=== PATIENT | male | born 1945 | race African-American/Black ===

== ENCOUNTER 2017-11-07 09:49 | Outpatient (RCR) | payer MEDICARE, OTHER ==
[2017-10-22 10:36] LABS: BUN/CREATININE RATIO 10; CREATININE SERUM 1.01 MG/DL (0.60-1.30); GFR ESTIMATED > 60
== END 2017-11-09 | disposition home or self-care (01) ==
LOC: ONC 09:49
PROVIDERS: ATTEND Radiology Radiation Oncology
DX: Z51.0 Encounter for antineoplastic radiation therapy (principal); C61 Malignant neoplasm of prostate
CPT/HCPCS: 36415; 77300; 77301; 77334; 77338; 77385; 82565; 84520; 99204

== ENCOUNTER 2017-12-26 09:21 | Outpatient (RCR) | payer MEDICARE, OTHER | END 2018-02-08 | disposition home or self-care (01) | LOC: ONC 09:21 | PROVIDERS: ATTEND Radiology Radiation Oncology | DX: Z51.0 Encounter for antineoplastic radiation therapy (principal); C61 Malignant neoplasm of prostate | CPT/HCPCS: 77300; 77336; 77338; 77385 ==

== ENCOUNTER 2018-03-06 11:58 | Outpatient (RCR) | payer MEDICARE, OTHER | END 2018-06-04 | disposition home or self-care (01) | LOC: ONC 11:58 | PROVIDERS: ATTEND Radiology Radiation Oncology | DX: C61 Malignant neoplasm of prostate (principal) | CPT/HCPCS: 36415; 84153 ==

== ENCOUNTER → 2018-12-21 | Outpatient (CLI) | payer MEDICARE, OTHER | LOC: EDSTATUS 09-18 09:08 → ONC 09:09 | PROVIDERS: ATTEND Radiology Radiation Oncology | DX: C61 Malignant neoplasm of prostate (principal) | CPT/HCPCS: 36415; 84153 ==

== ENCOUNTER 2020-08-25 11:08 | Emergency (ER) | payer MEDICARE, OTHER ==
[2020-08-25] MEDS ORDERED: hydrALAZINE (APESOLINE) 20 MG/ML VIAL IV STA (11:24)
--- NOTE | 2020-08-25 11:24 | ED General ---
General Chief Complaint: Cardiac/General Problems Stated Complaint: CHEST PAIN Source of Information: Patient, EMS History of Present Illness Date Seen by Provider: Aug 25, 2020 Time Seen by Provider: 11:08 Initial Comments 75-year-old male presenting by EMS from the urgent care clinic with complaints of high blood pressure and leg cramping. He states this has been going on for over a month. He denies missing any doses of medication being on the medicine. He follows with Dr. Freeman. He states since his in April she has been eating more fast food and prepared meals that have a lot of preservatives and sodium in them. He has had some intermittent chest pains that feel more like his reflux. He denies any headache, vision change, blurry vision, nausea, vomiting, pain with urination. Timing/Duration: Other (Over a month of intermittent symptoms) Associated Systoms: No Cough, No Diaphoresis, No Fever/Chills, No Headaches, No Loss of Appetite, No Malaise, No Nausea/Vomiting, No Rash, No Seizure, No Shortness of Air, No Syncope, No Weakness Allergies and Home Medications Allergies Coded Allergies: No Known Drug Allergies (Unverified , 08/25/20) Home Medications Losartan Potassium 100 Mg Tablet, 100 MG PO DAILY Prescribed by: GIL GARCIA on 08/25/20 1207 Patient Home Medication List Home Medication List Reviewed: Yes Review of Systems Review of Systems Constitutional: No chills, No dizziness, No fever EENTM: no symptoms reported Respiratory: no symptoms reported Cardiovascular: chest pain (Intermittent pain that feels like his heartburn) Gastrointestinal: see HPI Genitourinary: no symptoms reported Musculoskeletal: see HPI, muscle cramps (Left leg more than right) Skin: no symptoms reported Psychiatric/Neurological: No Symptoms Reported Past Frgnquu-Psonwy-Mmrjrl Hx Past Medical History Respiratory: No Cardiac: Yes High Cholesterol, Hypertension Physical Exam Vital Signs Vital Signs - First Documented 08/25/20 11:08 Temp 36.7 Pulse 72 Resp 23 B/P (MAP) 193/93 (126) Pulse Ox 98 O2 Delivery Room Air Capillary Refill : Height, Weight, BMI Height: '" Weight: lbs. oz. kg; BMI Method: General Appearance: No Apparent Distress, WD/WN HEENT: PERRL/EOMI Neck: Full Range of Motion, Normal Inspection, Non Tender, Supple Respiratory: Chest Non Tender, Lungs Clear, Normal Breath Sounds Cardiovascular: Regular Rate, Rhythm, Normal Peripheral Pulses Gastrointestinal: Normal Bowel Sounds, No Pulsatile Mass, Non Tender, Soft Rectal: Deferred Extremity: Normal Capillary Refill, No Pedal Edema Neurologic/Psychiatric: Alert, Oriented x3, field nurse II-XII Norm as Tested Skin: Normal Color, Warm/Dry Progress/Results/Core Measures Suspected Sepsis SIRS Temperature: Pulse: Respiratory Rate: Laboratory Tests 08/25/20 11:10: White Blood Count 5.1 Blood Pressure / Mean: Laboratory Tests 08/25/20 11:10: Creatinine 1.09, INR Comment 0.9, Platelet Count 235, Total Bilirubin 0.4 Results/Orders Lab Results Laboratory Tests Test 08/25/20 11:10 08/25/20 11:20 Range/Units White Blood Count 5.1 4.3-11.0 10^3/uL Red Blood Count 4.61 4.35-5.85 10^6/uL Hemoglobin 14.6 13.3-17.7 G/DL Hematocrit 43 40-54 % Mean Corpuscular Volume 93 80-99 FL Mean Corpuscular Hemoglobin 32 25-34 PG Mean Corpuscular Hemoglobin Concent 34 32-36 G/DL Red Cell Distribution Width 12.8 10.0-14.5 % Platelet Count 235 130-400 10^3/uL Mean Platelet Volume 9.8 7.4-10.4 FL Immature Granulocyte % (Auto) 1 % Neutrophils (%) (Auto) 42 42-75 % Lymphocytes (%) (Auto) 41 12-44 % Monocytes (%) (Auto) 15 H 0-12 % Eosinophils (%) (Auto) 1 0-10 % Basophils (%) (Auto) 0 0-10 % Neutrophils # (Auto) 2.1 1.8-7.8 X 10^3 Lymphocytes # (Auto) 2.1 1.0-4.0 X 10^3 Monocytes # (Auto) 0.8 0.0-1.0 X 10^3 Eosinophils # (Auto) 0.1 0.0-0.3 10^3/uL Basophils # (Auto) 0.0 0.0-0.1 10^3/uL Immature Granulocyte # (Auto) 0.0 0.0-0.1 10^3/uL Prothrombin Time 12.8 12.2-14.7 SEC INR Comment 0.9 0.8-1.4 Activated Partial Thromboplast Time 29 24-35 SEC Sodium Level 137 135-145 MMOL/L Potassium Level 4.0 3.6-5.0 MMOL/L Chloride Level 104 98-107 MMOL/L Carbon Dioxide Level 24 21-32 MMOL/L Anion Gap 9 5-14 MMOL/L Blood Urea Nitrogen 13 7-18 MG/DL Creatinine 1.09 0.60-1.30 MG/DL Estimat Glomerular Filtration Rate > 60 BUN/Creatinine Ratio 12 Glucose Level 112 H 70-105 MG/DL Calcium Level 9.4 8.5-10.1 MG/DL Corrected Calcium 9.2 8.5-10.1 MG/DL Magnesium Level 2.0 1.6-2.4 MG/DL Total Bilirubin 0.4 0.1-1.0 MG/DL Aspartate Amino Transf (AST/SGOT) 20 5-34 U/L Alanine Aminotransferase (ALT/SGPT) 26 0-55 U/L Alkaline Phosphatase 64 40-136 U/L Troponin I < 0.30 <0.30 NG/ML Pro-B-Type Natriuretic Peptide 24.5 <75.0 PG/ML Total Protein 7.4 6.4-8.2 GM/DL Albumin 4.3 3.2-4.5 GM/DL Urine Color YELLOW Urine Clarity CLEAR Urine pH 7.0 5-9 Urine Specific [place] 1.015 L 1.016-1.022 Urine Protein NEGATIVE NEGATIVE Urine Glucose (UA) NEGATIVE NEGATIVE Urine Ketones NEGATIVE NEGATIVE Urine Nitrite NEGATIVE NEGATIVE Urine Bilirubin NEGATIVE NEGATIVE Urine Urobilinogen 0.2 < = 1.0 MG/DL Urine Leukocyte Esterase NEGATIVE NEGATIVE Urine RBC (Auto) NEGATIVE NEGATIVE Urine RBC NONE /HPF Urine WBC 0-2 /HPF Urine Squamous Epithelial Cells RARE /HPF Urine Crystals NONE /LPF Urine Bacteria NEGATIVE /HPF Urine Casts NONE /LPF Urine Mucus NEGATIVE /LPF Urine Culture Indicated NO My Orders Orders - GIL GARCIA MD Cbc With Automated Diff (08/25/20 11:19) Magnesium (08/25/20 11:19) Chest 1 View Ap/Pa Only (08/25/20 11:19) Ekg Tracing (08/25/20 11:19) Comprehensive Metabolic Panel (08/25/20 11:19) Protime With Inr (08/25/20 11:19) Partial Thromboplastin Time (08/25/20 11:19) O2 (08/25/20 11:19) Monitor-Rhythm Ecg Trace Only (08/25/20 11:19) Ed Iv/Invasive Line Start (08/25/20 11:19) Troponin I Fs (08/25/20 11:19) Probnp Fs (08/25/20 11:19) Ua Culture If Indicated (08/25/20 11:19) Hydralazine Injection (Apresoline Inject (08/25/20 11:24) Vital Signs/I&O 08/25/20 08/25/20 11:08 12:20 Temp 36.7 Pulse 72 71 Resp 23 18 B/P (MAP) 193/93 (126) 159/97 Pulse Ox 98 96 O2 Delivery Room Air Room Air Capillary Refill : Progress Note #1: Progress Note Obtain electrocardiogram as well as labs and chest x-ray. Given aspirin by EMS for his complaint of epigastric indigestion and heartburn type symptoms. Electrocardiogram does not show any acute ST elevation or ischemic change. Ordered hydralazine to help with his elevated blood pressure Progress Note #2: Progress Note Patient has no acute significant normality on his labs. He had negative cardiac enzymes considering he has had symptoms off and on for over a month. His blood pressure was responding to the medication. His chest x-ray did not show any acute significant normality. Counseled that his electrolytes did not demonstrate any acute abnormality to account for his muscle cramps and spasms. This may be related back to his medication and not eating a balanced diet. Advised to try and do better with his diet as well as double up on his losartan until he can check back with the clinic in the next week or 2. ECG Initial ECG Impression Date: Aug 25, 2020 Initial ECG Impression Time: 11:08 Initial ECG Rate: 71 Initial ECG Rhythm: Normal Sinus Initial ECG Comparisson: No Previous ECG Available Comment Normal sinus rhythm with heart rate 71 bpm. ID interval 121 ms. He has premature atrial complexes. There is a right bundle branch block present. No acute ST elevation. QT interval 403 ms with a QTc interval 471 ms. There is no prior tracing available for comparison. Diagnostic Imaging Diagonstic Imaging: Xray Plain Films/CT/US/NM/MRI: chest Comments [facility] [place], [place] NAME: DEEPAK ERAZO [facility] REC#: [id number] PT STATUS: REG ER : 1945 PHYSICIAN: GIL GARCIA MD ADMIT DATE: 08/25/20/ER FS Draft Date of Exam:08/25/20 CHEST 1 VIEW AP/PA ONLY Indication: Hypertension, chest pain Portable chest 11:15 AM Heart size and pulmonary vascularity are normal. Lungs are clear. There are no effusions or pneumothoraces. IMPRESSION: Negative chest. Dictated on workstation # [id number] Dict: 08/25/20 1132 Trans: 08/25/20 1133 [facility] [id number] Interpreted by: HOMERO BLUE MD Electronically signed by: Reviewed: Reviewed by Me Departure Impression Primary Impression: Hypertension Qualified Codes: I10 - Essential (primary) hypertension Additional Impression: Leg cramping Disposition: 01 HOME, SELF-CARE Condition: Improved Departure-Patient Inst. Decision time for Depature: 12:07 Referrals: CLINTON FREEMAN MD Patient Instructions: High Blood Pressure ED, Muscle Spasm ED, DASH Diet, Low Salt Diet Add. Discharge Instructions: Double your Losartan blood pressure medicine to take 100 mg instead of just 50 mg a day. Follow up with clinic about your blood pressure and leg cramps. Try to avoid pre-packaged foods as they have a lot of salt and preservatives that can raise your blood pressure. All discharge instructions reviewed with patient and/or family. Voiced understanding. Scripts Losartan Potassium (Losartan Potassium) 100 Mg Tablet 100 MG PO DAILY for Blood Pressure for 30 Days, #30 TAB 0 Refills Prov: GIL GARCIA MD 08/25/20 GIL GARCIA MD Aug 25, 2020 11:24
--- NOTE | 2020-08-25 11:34 | Diagnostic Imaging Report ---
Indication: Hypertension, chest pain Portable chest 11:15 AM Heart size and pulmonary vascularity are normal. Lungs are clear. There are no effusions or pneumothoraces. IMPRESSION: Negative chest. Dictated by: Dictated on workstation # [id number]
[2020-08-25 11:55] LABS: BASOPHILS % (AUTO) 0 % (0-10); EOSINOPHILS # (AUTO) 0.1 10^3/uL (0.0-0.3); EOSINOPHILS % (AUTO) 1 % (0-10); HEMATOCRIT 43 % (40-54); HEMOGLOBIN 14.6 G/DL (13.3-17.7); LYMPHOCYTES # (AUTO) 2.1 X 10^3 (1.0-4.0); LYMPHOCYTES % (AUTO) 41 % (12-44); MEAN CORPUSCULAR HEMOGLOBIN 32 PG (25-34); MEAN CORPUSCULAR HGB CONC 34 G/DL (32-36); MEAN CORPUSCULAR VOLUME 93 FL (80-99); MEAN PLATELET VOLUME 9.8 FL (7.4-10.4); MONOCYTES # (AUTO) 0.8 X 10^3 (0.0-1.0); MONOCYTES % (AUTO) 15 % (0-12); NEUTROPHILS # (AUTO) 2.1 X 10^3 (1.8-7.8); NEUTROPHILS % (AUTO) 42 % (42-75); PLATELET COUNT 235 10^3/uL (130-400); WHITE BLOOD COUNT 5.1 10^3/uL (4.3-11.0)
[2020-08-25 11:56] LABS: BILIRUBIN,URINE NEGATIVE (NEGATIVE); CLARITY,URINE CLEAR; COLOR,URINE YELLOW; GLUCOSE, URINE (UA) NEGATIVE (NEGATIVE); KETONES,URINE NEGATIVE (NEGATIVE); NITRITE,URINE NEGATIVE (NEGATIVE); PROTEIN,URINE NEGATIVE (NEGATIVE)
[2020-08-25 11:57] LABS: BACTERIA,URINE NEGATIVE /HPF; LEUKOCYTE ESTERASE ,URINE NEGATIVE (NEGATIVE); SQUAMOUS EPITHELIAL CELL,UR RARE /HPF; WBC,URINE 0-2 /HPF
[2020-08-25 11:58] LABS: ALANINE AMINOTRANSFERASE 26 U/L (0-55); ALBUMIN 4.3 GM/DL (3.2-4.5); ALKALINE PHOSPHATASE 64 U/L (40-136); BILIRUBIN,TOTAL 0.4 MG/DL (0.1-1.0); BUN/CREATININE RATIO 12; CALCIUM 9.4 MG/DL (8.5-10.1); CARBON DIOXIDE 24 MMOL/L (21-32); CHLORIDE 104 MMOL/L (98-107); CREATININE SERUM 1.09 MG/DL (0.60-1.30); GFR ESTIMATED > 60; GLUCOSE 112 MG/DL (70-105); SODIUM 137 MMOL/L (135-145); TOTAL PROTEIN 7.4 GM/DL (6.4-8.2)
[2020-08-25 12:01] LABS: INR 0.9 (0.8-1.4); PROTHROMBIN TIME PATIENT 12.8 SEC (12.2-14.7)
[2020-08-25] MEDS ORDERED: LOSA100T57 PO (12:07)
[2020-08-25 12:20] VITALS: BP 159/97
== END 2020-08-25 12:20 | disposition home or self-care (01) ==
LOC: EDUNIT# 11:08 → ER FS 11:09
DX: I10 Essential (primary) hypertension (principal); R25.2 Cramp and spasm
CPT/HCPCS: 36415; 71045; 80053; 81000; 83735; 83880; 84484; 85025; 85610; 85730; 93005; 93041

== ENCOUNTER 2020-10-21 20:13 | Emergency (ER) | payer MEDICARE ==
[~2020-10-21 20:13] MED LIST: LOSA100T57 PO
--- OUTSIDE RECORDS SUMMARY | 2020-10-21 20:20 | XMS REPORT | Clinical Summary ---
Author Author [facility] Organization [facility] Address Unknown Phone Unavailable Care Team Providers Care Plant Maintenance Supervisor Name Role Phone Juan [place] [id number] Source Comments Some departments are not documenting in the electronic medical record. If you d o not see the information that you expected, contact Release of Information in [facility] [employer] Information Management department at [phone] for further assistan ce in locating additional records.[facility] Allergies No Known Active Allergies Medications End Date Status Medication Sig Dispensed Refills Start Date Active hydroCHLOROthiazide Take 25 mg by 0 (HYDRODIURIL) 25 mg mouth every tablet morning. Active polymyxin/bacitracin/param/ You may not 0 10/13 0 HC (CORTISPORIN) 1 % need to fill 7 topical ointment this. Take home the cortisporin tube you have had in the hospital. This is for lubrication around your catheter at the tip of the meatus. Apply three times daily. You shouldn't have to fill this prescription if you take your tube home for the hospital. Active tadalafil (CIALIS) 20 mg Take one 30 tablet 5 0 tablet tablet by 8 mouth as Needed for Erectile dysfunction. Active Problems Problem Noted Date HTN (hypertension) 10/17/2016 Prostate cancer 09/26/2016 Cancer Staging: Pathologic stage from : Stage IIB (T2c, N0, cM0, PSA: Less than 10, Nahed 7) - Signed by Radha Simmons APRN-ANJALI on 12/29/2017 Overview: Formatting of this note is different fr om the original. [place] 4+3 in 4 out of 6 cores on the left, 25 and 30% of the tissue, and [place] 3+4 in 2 out of 6 cores on the right and [place] 3+3 in 2 out of 6 cores in the right. MRI of the pelvis did not reveal any lymphadenopathy or extraprostatic extension. He underwent RALP with bilateral nerve sparing on 11/08/16 with path showing pTc2N0 Gleaso n 3+4=7; (+) margins adenocarcinoma of the prostate. PSA: Lab Results Component Value Date PSA 0.05 06/19/2017 PSA 0.02 03/05/2017 L ast Assessment & Plan: Formatting of this note might be differ ent from the original. Mr. Terry is doing well, reports some u rgency, related to radiation, just finished 8 weeks on 01-02-2018, otherwi se had good urinary control. He is not interested in any PDE5I therapy for erections, not an issue at this time. He had functional erections for i ntersourse prior to start of radiation, not concerned about ED at th is time. Plan: 1. Return to clinic in 3 months with PS A 2. Continue Kegal exercises Surgical History Surgery Date Site/Laterality Comments COLONOSCOPY PROSTATECTOMY 11/08/2016 Abdomen/N/A ROBOTIC ASSISTE D LAPAROSCOPIC PROSTATECTOMY, PELVIC LYMPH NODE DISSECTION performed by Dennys Loera MD at [facility] Medical History Medical History Date Comments Hypertension Hearing problem of both ears Prostate cancer (HCC) Family History Medical History Relation Name Comments Cancer Maternal Aunt Relation Name Status Comments Maternal Aunt Social History Date Tobacco Use Types Packs/Day Years Used Quit: 12/15/2017 Former Smoker Cigarettes 0.5 37 Smokeless Tobacco: Never Used Tobacco Cessation: Ready to Quit: Yes Comments Alcohol Use Standard Drinks/Week on occasion Yes 2 (1 standard drink = 0.6 o z pure alcohol) Alcohol Habits Answer Date Recorded How often do you have a drink containing alcohol? No t asked How many drinks containing alcohol do you have on No t asked a typical day when you are drinking? How often do you have six or more drinks on one Not asked occasion? Comment: on occasion 10/31/2016 Sex Assigned at Date Recorded Not on file Last Filed Vital Signs Reading Time Taken Comments Vital Sign 103/68 01/14/2018 9:45 AM APARTMENT LEASING SPECIALIST Blood Pressure 72 01/14/2018 9:45 AM APARTMENT LEASING SPECIALIST Pulse 36.7 C (98 F) 01/14/2018 9:45 AM APARTMENT LEASING SPECIALIST Temperature 16 01/14/2018 9:45 AM APARTMENT LEASING SPECIALIST Respiratory Rate 100% 01/14/2018 9:45 AM APARTMENT LEASING SPECIALIST Oxygen Saturation - - Inhaled Oxygen Concentration 76.9 kg (169 lb 9.6 oz) 01/14/2018 9:45 AM APARTMENT LEASING SPECIALIST Weight 167.6 cm (5' 5.98") 01/14/2018 9:45 AM APARTMENT LEASING SPECIALIST Height 27.39 01/14/2018 9:45 AM APARTMENT LEASING SPECIALIST Body Mass Index Plan of Treatment Health Maintenance Due Date Last Done Comments MEDICARE ANNUAL WELLNESS 1945 VISIT DTAP/TDAP VACCINES (1 - 04/24/1965 Tdap) HEPATITIS C SCREENING 04/24/1965 PHYSICAL (COMPREHENSIVE) 04/24/1965 EXAM COLORECTAL CANCER 04/24/1997 SCREENING SHINGLES RECOMBINANT 04/24/1997 VACCINE (1 of 2) ABDOMINAL AORTIC ANEURYSM 04/24/2012 SCREENING PNEUMONIA (PPSV23) 04/24/2012 VACCINE (1 of 1 - PPSV23) INFLUENZA VACCINE 11/10/2020 02/28/2012 Results Not on filefrom Last 3 Months Insurance Type Payer Benefit Subscriber ID Effective Phone Address Plan / Dates Group Medicare MEDICARE MEDICARE [id number] 2016- PART A AND Present B Medicare CIGNA CIGNA [id number] 2016- MEDICARE Present SUPPLEMENT ([place]) [place], [place] [address] Advance Directives Patient Director Special Education Explanation Type Date Recorded Advance 11/08/2016 6:02 AM Directive/DPOA Date Inactivated Comments Code Status Date Activated 11/09/2016 7:51 PM Full Code 11/08/2016 12:31 PM Provider has discussed Code Status No, more discussi on w/Patient or Family? needed
--- NOTE | 2020-10-21 21:51 | ED General ---
General Chief Complaint: Cardiac/General Problems Stated Complaint: HIGH BLOOD PRESSURE Nursing Triage Note: Pt states he checked his bp at home and it was high. Pt states he does have a headache as well Source of Information: Patient History of Present Illness Date Seen by Provider: Oct 21, 2020 Time Seen by Provider: 21:31 Initial Comments 75-year-old male presenting with concern about his blood pressure. He developed a headache and some neck pain earlier today and reports that is usually a sign he has elevated blood pressure. When he checked his blood pressure it was around 170 for the top number. He did eat chicken with rice and used chicken broth the day before. He had thought that it was low on sodium but found that it actually had a lot of sodium in each serving. Previously has been very sensitive to sodium and salt intake. He reports to seeing his primary care provider this week and everything looks really well. He denies any chest pain or shortness of breath. He has no change in his vision. He has no nausea, vomiting, abdominal pain. He denies having any numbness or tingling into his arms or legs. He denies any head trauma or injury. Associated Systoms: No Chest Pain, No Cough, No Diaphoresis, No Fever/Chills; Headaches; No Loss of Appetite, No Malaise, No Nausea/Vomiting, No Rash, No Seizure, No Shortness of Air, No Syncope, No Weakness Allergies and Home Medications Allergies Coded Allergies: No Known Drug Allergies (Unverified , 08/25/20) Patient Home Medication List Home Medication List Reviewed: Yes Losartan Potassium (Losartan Potassium) 100 Mg Tablet, 100 MG PO DAILY Prescribed by: GIL GARCIA on 08/25/20 1207 Review of Systems Review of Systems Constitutional: see HPI EENTM: see HPI Respiratory: see HPI Cardiovascular: No chest pain Gastrointestinal: No nausea, No vomiting Genitourinary: no symptoms reported Musculoskeletal: see HPI Skin: No rash Psychiatric/Neurological: Anxiety, Headache; Denies Numbness, Denies Paresthesia Past Myzrvta-Qbtvgv-Pijyok Hx Patient Social History Tobacco Use?: No Use of E-Cig and/or Vaping dev: No Substance use?: No Pt feels they are or have been: No Past Medical History Surgery/Hospitalization HX: HTN, GERD Respiratory: No Cardiac: Yes High Cholesterol, Hypertension Physical Exam Vital Signs Vital Signs - First Documented 10/21/20 20:22 Temp 37.0 Pulse 73 Resp 16 B/P (MAP) 176/85 (115) Pulse Ox 98 O2 Delivery Room Air Capillary Refill : Less Than 3 Seconds Height, Weight, BMI Height: '" Weight: lbs. oz. kg; BMI Method: General Appearance: No Apparent Distress, Anxious HEENT: PERRL/EOMI, Pharynx Normal Neck: Full Range of Motion, Normal Inspection, Non Tender, Supple Respiratory: Chest Non Tender, Lungs Clear Cardiovascular: Regular Rate, Rhythm, Normal Peripheral Pulses Neurologic/Psychiatric: Alert, Oriented x3, livestock farmers II-XII Norm as Tested Skin: Normal Color, Warm/Dry Progress/Results/Core Measures Suspected Sepsis SIRS Temperature: Pulse: 73 Respiratory Rate: 16 Blood Pressure 176 /85 Mean: 115 Results/Orders Vital Signs/I&O 10/21/20 10/21/20 20:22 22:04 Temp 37.0 Pulse 73 70 Resp 16 16 B/P (MAP) 176/85 (115) 149/79 Pulse Ox 98 98 O2 Delivery Room Air Room Air Capillary Refill : Less Than 3 Seconds Blood Pressure Mean: 115 Progress Note : Progress Note While patient was waiting to be seen due to multiple other patients in the department and a critical patient that needed to be transferred his blood pressure came down on its own. He had improved headache and symptoms. Discussed with patient taking an additional dose of medicine as needed for elev ated blood pressure. Check back with the clinic for continued symptoms or recurrent episodes where he had to take the extra dose of blood pressure medicine more than a day or 2 at a time. Counseled on follow-up and return precautions. Departure Impression Primary Impression: Labile hypertension Disposition: 01 HOME, SELF-CARE Condition: Stable Departure-Patient Inst. Decision time for Depature: 21:55 Referrals: CLINTON FREEMAN MD (PCP/Family) Primary Care Physician Patient Instructions: High Blood Pressure ED, DASH Diet Add. Discharge Instructions: If your blood pressure is running high and you are having a headache and symptoms of elevated blood pressure, then take an extra dose of the Losartan that day. If you are needing to take this more than a day or two in a row then see your doctor to see about adjusting your dose of medicine. Follow a strict low sodium diet since that seems to be a trigger for you. All discharge instructions reviewed with patient and/or family. Voiced understanding. GIL GARCIA MD Oct 21, 2020 21:51
[2020-10-21 22:04] VITALS: BP 149/79
== END 2020-10-21 22:05 | disposition home or self-care (01) ==
LOC: EDUNIT# 20:13 → ER FS 20:16
DX: I10 Essential (primary) hypertension (principal)
CPT/HCPCS: 99281

== ENCOUNTER 2021-03-20 08:54 | Emergency (ER) | payer MEDICARE ==
[~2021-03-20] VITALS: Ht 167.7 cm; Wt 72.6 kg
--- NOTE | 2021-03-20 09:05 | ED Chest Pain ---
General Stated Complaint: CHEST PAIN History of Present Illness Date Seen by Provider: Mar 20, 2021 Time Seen by Provider: 09:01 Initial Comments 75-year-old male presents with some mild chest pain that is resolved. Patient reports that when he awoke this morning he had a little bit of chest pain, some mild shortness of breath and some bilateral tingling in his feet. He reports that most of his symptoms have now resolved. Patient does report that he was recently started on losartan and metoprolol for blood pressure. Patient was concerned that he was possibly taking it wrong. Patient is not having any diaphoresis, nausea, vomiting, radiation of the pain or currently chest pain upon arrival to the ER. Allergies and Home Medications Allergies Coded Allergies: No Known Drug Allergies (Unverified , 08/25/20) Patient Home Medication List Home Medication List Reviewed: Yes Losartan Potassium (Losartan Potassium) 100 Mg Tablet, 100 MG PO DAILY Prescribed by: GIL GARCIA on 08/25/20 1207 Review of Systems Review of Systems Constitutional: No chills, No fever Respiratory: See HPI Cardiovascular: See HPI Gastrointestinal: Denies Diarrhea, Denies Nausea, Denies Vomiting Genitourinary: No Symptoms Reported Musculoskeletal: see HPI Skin: no symptoms reported Psychiatric/Neurological: See HPI, Tingling (bottom of bilateral feet ) Past Iblqrka-Cvcznx-Gpvlxv Hx Past Medical History Surgery/Hospitalization HX: HTN, GERD Respiratory: No Cardiac: Yes High Cholesterol, Hypertension Physical Exam Vital Signs Vital Signs - First Documented 03/20/21 03/20/21 08:54 11:35 Temp 36.3 Pulse 82 Resp 17 B/P (MAP) 159/90 (113) Pulse Ox 100 O2 Delivery Room Air Capillary Refill : Height, Weight, BMI Height: '" Weight: lbs. oz. kg; BMI Method: General Appearance: No Apparent Distress, WD/WN Neck: Normal Inspection, Non Tender Respiratory: Lungs Clear, Normal Breath Sounds, No Accessory Muscle Use, No Respiratory Distress Cardiovascular: Regular Rate, Rhythm, No Edema Extremity: Normal Capillary Refill, Normal Inspection, Normal Range of Motion Neurologic/Psychiatric: Alert, Oriented x3, No Motor/Sensory Deficits, Normal Mood/Affect, hebrew cantor II-XII Norm as Tested Skin: Normal Color, Warm/Dry Progress/Results/Core Measures Results/Orders Lab Results Laboratory Tests Test 03/20/21 09:07 03/20/21 10:54 03/20/21 10:58 Range/Units White Blood Count 5.5 4.3-11.0 10^3/uL Red Blood Count 4.88 4.30-5.52 10^6/uL Hemoglobin 15.1 13.3-17.7 g/dL Hematocrit 45 40-54 % Mean Corpuscular Volume 93 80-99 fL Mean Corpuscular Hemoglobin 31 25-34 pg Mean Corpuscular Hemoglobin Concent 33 32-36 g/dL Red Cell Distribution Width 12.0 10.0-14.5 % Platelet Count 238 130-400 10^3/uL Mean Platelet Volume 8.7 L 9.0-12.2 fL Immature Granulocyte % (Auto) 1 % Neutrophils (%) (Auto) 42 42-75 % Lymphocytes (%) (Auto) 44 12-44 % Monocytes (%) (Auto) 9 0-12 % Eosinophils (%) (Auto) 4 0-10 % Basophils (%) (Auto) 1 0-10 % Neutrophils # (Auto) 2.3 1.8-7.8 10^3/uL Lymphocytes # (Auto) 2.4 1.0-4.0 10^3/uL Monocytes # (Auto) 0.5 0.0-1.0 10^3/uL Eosinophils # (Auto) 0.2 0.0-0.3 10^3/uL Basophils # (Auto) 0.0 0.0-0.1 10^3/uL Immature Granulocyte # (Auto) 0.0 0.0-0.1 10^3/uL Neutrophils % (Manual) 42 % Lymphocytes % (Manual) 18 % Monocytes % (Manual) 11 % Eosinophils % (Manual) 1 % Basophils % (Manual) 0 % Metamyelocytes % 1 % Atypical Lymphocytes 27 % Platelet Estimate NORMAL Blood Morphology Comment NORMAL Sodium Level 136 135-145 MMOL/L Potassium Level 3.8 3.6-5.0 MMOL/L Chloride Level 100 98-107 MMOL/L Carbon Dioxide Level 23 21-32 MMOL/L Anion Gap 13 5-14 MMOL/L Blood Urea Nitrogen 10 7-18 MG/DL Creatinine 1.24 0.60-1.30 MG/DL Estimat Glomerular Filtration Rate 61 BUN/Creatinine Ratio 8 Glucose Level 144 H 70-105 MG/DL Calcium Level 10.2 H 8.5-10.1 MG/DL Corrected Calcium 8.5-10.1 MG/DL Magnesium Level 1.8 1.6-2.4 MG/DL Total Bilirubin 0.7 0.1-1.0 MG/DL Aspartate Amino Transf (AST/SGOT) 19 5-34 U/L Alanine Aminotransferase (ALT/SGPT) 21 0-55 U/L Alkaline Phosphatase 66 40-136 U/L Troponin I < 0.30 < 0.30 <0.30 NG/ML C-Reactive Protein 0.30 <0.50 MG/DL Pro-B-Type Natriuretic Peptide 7.3 <75.0 PG/ML Total Protein 8.2 6.4-8.2 GM/DL Albumin 4.6 H 3.2-4.5 GM/DL Urine Color YELLOW Urine Clarity CLEAR Urine pH 6.0 5-9 Urine Specific [place] 1.010 L 1.016-1.022 Urine Protein NEGATIVE NEGATIVE Urine Glucose (UA) NEGATIVE NEGATIVE Urine Ketones NEGATIVE NEGATIVE Urine Nitrite NEGATIVE NEGATIVE Urine Bilirubin NEGATIVE NEGATIVE Urine Urobilinogen 0.2 < = 1.0 MG/DL Urine Leukocyte Esterase NEGATIVE NEGATIVE Urine RBC (Auto) NEGATIVE NEGATIVE Urine RBC NONE /HPF Urine WBC 0-2 /HPF Urine Squamous Epithelial Cells 2-5 /HPF Urine Crystals NONE /LPF Urine Bacteria NEGATIVE /HPF Urine Casts NONE /LPF Urine Mucus NEGATIVE /LPF Urine Culture Indicated NO My Orders Orders - PRAVIN ROBERTOVOR L DO Cbc With Automated Diff (03/20/21 09:05) Comprehensive Metabolic Panel (03/20/21 09:05) Magnesium (03/20/21 09:05) Ua Culture If Indicated (03/20/21 09:05) Probnp Fs (03/20/21 09:05) Crp Fs (03/20/21 09:05) Troponin I Fs (03/20/21 09:05) Ekg Tracing (03/20/21 09:05) Monitor-Rhythm Ecg Trace Only (03/20/21 09:05) Chest 1 View Ap/Pa Only (03/20/21 09:05) Aspirin Chewable Tablet (Baby Aspirin Ch (03/20/21 09:15) Manual Differential (03/20/21 09:07) Troponin I Fs (03/20/21 10:51) Medications Given in ED Current Medications Medications Dose Ordered Sig/[place] Route Start Time Stop Time Status Last Admin Dose Admin Aspirin 324 mg ONCE ONCE PO 03/20/21 09:15 03/20/21 09:16 DC 03/20/21 09:16 324 MG Vital Signs/I&O 03/20/21 03/20/21 08:54 11:35 Temp 36.3 36.1 Pulse 82 74 Resp 17 16 B/P (MAP) 159/90 (113) 142/82 Pulse Ox 100 O2 Delivery Room Air Room Air Progress Progress Note : Progress Note Patient remained symptom-free besides some mild tingling in his bilateral bottom of his feet. Patient had EKG with no acute changes similar to his previous EKG. Patient labs shows no acute abnormalities. Patient with 2 - troponins. Discussed with him that he needs to follow-up with his primary care provider that further evaluation of his paresthesias since there are multiple causes al elian with review of his current medications. Consider a possible cardiology consult and discuss this with his primary care provider. Patient was stable and discharged Initial ECG Impression Date: Mar 20, 2021 Initial ECG Impression Time: 08:54 Initial ECG Rate: 94 Initial ECG Rhythm: Normal Sinus Initial ECG Intervals: Normal Comment nsr, left atrial enlargement, RBBB. no acute findings. Diagnostic Imaging Diagonstic Imaging: Xray Plain Films/CT/US/NM/MRI: chest Comments Date of Exam:03/20/21 CHEST 1 VIEW AP/PA ONLY EXAMINATION: Chest 1 view HISTORY: Chest pain. COMPARISON: 08/25/2020. FINDINGS: The lung volumes are normal. No focal consolidation is seen. No large pleural effusion or pneumothorax is seen. The cardiomediastinal silhouette is normal in size and contour. No acute osseous abnormality is seen. IMPRESSION: 1. No acute pleuroparenchymal process. Departure Impression Primary Impression: Chest pain Qualified Codes: R07.9 - Chest pain, unspecified Additional Impression: Paresthesia of foot Qualified Codes: R20.2 - Paresthesia of skin Disposition: 01 HOME, SELF-CARE Condition: Stable Departure-Patient Inst. Referrals: CLINTON FREEMAN MD (PCP/Family) Primary Care Physician Patient Instructions: Paresthesia (DC), Chest Pain (DC) Add. Discharge Instructions: Follow-up with your primary care provider for recheck of the tingling of your feet. Can also consider a cardiology consult please discuss that with your primary care provider. GABBY ROBERTO DO Mar 20, 2021 09:05
[2021-03-20 09:13] LABS: BASOPHILS % (AUTO) 1 % (0-10); EOSINOPHILS # (AUTO) 0.2 10^3/uL (0.0-0.3); EOSINOPHILS % (AUTO) 4 % (0-10); HEMATOCRIT 45 % (40-54); HEMOGLOBIN 15.1 g/dL (13.3-17.7); LYMPHOCYTES # (AUTO) 2.4 10^3/uL (1.0-4.0); LYMPHOCYTES % (AUTO) 44 % (12-44); MEAN CORPUSCULAR HEMOGLOBIN 31 pg (25-34); MEAN CORPUSCULAR HGB CONC 33 g/dL (32-36); MEAN CORPUSCULAR VOLUME 93 fL (80-99); MEAN PLATELET VOLUME 8.7 fL (9.0-12.2); MONOCYTES # (AUTO) 0.5 10^3/uL (0.0-1.0); MONOCYTES % (AUTO) 9 % (0-12); NEUTROPHILS # (AUTO) 2.3 10^3/uL (1.8-7.8); NEUTROPHILS % (AUTO) 42 % (42-75); PLATELET COUNT 238 10^3/uL (130-400); WHITE BLOOD COUNT 5.5 10^3/uL (4.3-11.0)
[2021-03-20] MEDS ORDERED: ASPIRIN 81 MG CHEW (CHILDREN'S ASA) PO ONE (09:15)
--- NOTE | 2021-03-20 09:30 | Diagnostic Imaging Report ---
EXAMINATION: Chest 1 view HISTORY: Chest pain. COMPARISON: 08/25/2020. FINDINGS: The lung volumes are normal. No focal consolidation is seen. No large pleural effusion or pneumothorax is seen. The cardiomediastinal silhouette is normal in size and contour. No acute osseous abnormality is seen. IMPRESSION: 1. No acute pleuroparenchymal process. Dictated by: Dictated on workstation # [id number]
[2021-03-20 09:45] LABS: ATYPICAL LYMPHOCYTES 27 %; BASOPHILS % (MANUAL) 0 %; EOSINOPHILS % (MANUAL) 1 %; LYMPHOCYTES % (MANUAL) 18 %; METAMYELOCYTES % 1 %; MONOCYTES % (MANUAL) 11 %; NEUTROPHILS % (MANUAL) 42 %; PLATELET ESTIMATE NORMAL; RBC MORPH NORMAL
[2021-03-20 09:49] LABS: BUN/CREATININE RATIO 8; CALCIUM 10.2 MG/DL (8.5-10.1); CARBON DIOXIDE 23 MMOL/L (21-32); CHLORIDE 100 MMOL/L (98-107); CREATININE SERUM 1.24 MG/DL (0.60-1.30); GFR ESTIMATED 61; GLUCOSE 144 MG/DL (70-105); POTASSIUM 3.8 MMOL/L (3.6-5.0); SODIUM 136 MMOL/L (135-145)
[2021-03-20 09:50] LABS: ALANINE AMINOTRANSFERASE 21 U/L (0-55); ALBUMIN 4.6 GM/DL (3.2-4.5); ALKALINE PHOSPHATASE 66 U/L (40-136); BILIRUBIN,TOTAL 0.7 MG/DL (0.1-1.0); MAGNESIUM 1.8 MG/DL (1.6-2.4); TOTAL PROTEIN 8.2 GM/DL (6.4-8.2)
[2021-03-20 11:35] VITALS: BP 142/82
[2021-03-20 11:43] LABS: BILIRUBIN,URINE NEGATIVE (NEGATIVE); CLARITY,URINE CLEAR; COLOR,URINE YELLOW; GLUCOSE, URINE (UA) NEGATIVE (NEGATIVE); KETONES,URINE NEGATIVE (NEGATIVE); LEUKOCYTE ESTERASE ,URINE NEGATIVE (NEGATIVE); NITRITE,URINE NEGATIVE (NEGATIVE); PROTEIN,URINE NEGATIVE (NEGATIVE)
[2021-03-20 11:53] LABS: BACTERIA,URINE NEGATIVE /HPF; WBC,URINE 0-2 /HPF
== END 2021-03-20 11:40 | disposition home or self-care (01) ==
LOC: EDUNIT# 08:59 → ER FS 09:00
DX: R07.9 Chest pain, unspecified (principal); R20.2 Paresthesia of skin; I10 Essential (primary) hypertension
CPT/HCPCS: 36415; 71045; 80053; 81000; 83735; 83880; 84484; 85007; 85027; 86141; 93005; 93041

== ENCOUNTER → 2021-04-26 | Outpatient (CLI) | payer MEDICARE ==
[~2021-04-26] MED LIST changes: +CATHETER FLUSH 10 ML SYR IVP PRN
[2021-04-26 12:29] VITALS: BP 132/69
--- NOTE | 2021-04-29 11:45 | NUCLEAR STRESS TEST ---
TREADMILL NUCLEAR STRESS TEST Date of procedure: 04/26/2021. Primary care provider: Wilman Jimenes MD. Admitting physician: Jean Parker Jr., MD. INDICATION: Abnormal electrocardiogram. BASELINE ELECTROCARDIOGRAM: Sinus bradycardia at 54 bpm with occasional premature supraventricular complexes and right bundle branch block. STRESS TEST PROCEDURE: The patient was exercised for a total of 7 minutes and 10 seconds of the standard Triston protocol achieving a maximum MET level of 8.7. The resting heart rate was 54 bpm and the peak heart rate was 134 bpm, which represents 91% of the maximum predicted heart rate. The resting blood pressure was 126/74 mmHg and the peak blood pressure was 178/61 mmHg. This represents a normal heart rate and a normal blood pressure response to exercise. The test was stopped due to patient attaining target heart rate. There was no chest discomfort during the test. There were isolated premature supraventricular complexes during the test. There was approximately [address] depression in the inferior leads during recovery which improved further along in recovery. The patient exhibited good exercise capacity for age. NUCLEAR PROCEDURE: The patient was administered 10.7 mCi of intravenous te chnetium 99m Tetrofosmin at rest for the rest images. The patient was subsequently administered 31 mCi of intravenous technetium 99 M Tetrofosmin at peak stress for the stress images. Following an appropriate wait after each injection, imaging was obtained. The images were subsequently processed and reformatted in the usual views. Gated imaging was obtained. The image quality was adequate with a mild degree of gastrointestinal attenuation artifact. CT attenuation correction was used as a adjunct to standard imaging. Both the corrected and uncorrected images were reviewed for interpretation. NUCLEAR RESULTS: There was normal myocardial perfusion in all segments without evidence of infarction or ischemia. There was normal left ventricular chamber size with an end-diastolic volume of 45 mL and an end-systolic volume of 12 mL. There was no evidence of transient ischemic dilatation. The TID ratio was 1.06. There was normal wall motion in all segments with a calculated ejection fraction of 73%. IMPRESSION: 1. Normal heart rate and blood pressure response to exercise. 2. There was no chest discomfort during the test. 3. There were isolated premature supraventricular complexes at rest, during exercise and in recovery. 4. There were borderline abnormal electrocardiogram changes in recovery that improved further along in recovery. 5. The patient exhibited good exercise capacity for age at 7 minutes and 10 seconds of the Triston protocol. 6. There was normal myocardial perfusion in all segments without evidence of infarction or ischemia. 7. There was normal wall motion in all segments with a calculated ejection fraction of 73%. Certain portions of this document may have been dictated utilizing voice recognition technology. Inherent to this technology, typographical and grammatical errors may exist. As much as I am diligent to identify and correct these mistakes, some errors may remain in the document. JEAN PARKER JR, MD Apr 29, 2021 11:45
== END ==
LOC: CARD 10:30
PROVIDERS: ATTEND Internal Medicine Cardiovascular Disease
DX: I51.7 Cardiomegaly (principal); I35.8 Other nonrheumatic aortic valve disorders
CPT/HCPCS: 78452; 93017; 93306; A9502